=== PATIENT | male | born 1975 | race Caucasian/White ===

== ENCOUNTER → 2022-09-27 | Outpatient (CLI) | payer OTHER | END | disposition home or self-care (01) | LOC: RAD 09:59 | PROVIDERS: ATTEND Family Medicine | DX: M16.12 Unilateral primary osteoarthritis, left hip (principal) ==

== ENCOUNTER → 2024-12-22 | Day surgery (SDC) | payer OTHER ==
[~2024-12-22] VITALS: Ht 180.3 cm; Wt 99.8 kg
[~2024-12-22] MED LIST: AMLODIPINE BESY10 MG PO; DULOXETINE HCL60 MG PO; LISINOPRIL40 MG PO; Lactated Ringer's Solution 1,000 ML IV ONE; Lactated Ringer's Solution 1,000 ML IV SCH; Lidocaine Hydrochloride 2% 5 ML SDV IV ONE; PROPOFOL 200 MG/20 ML VIAL IV ONE; SIMVASTATIN40 MG PO
[2024-12-22 07:09] VITALS: BP 140/97
[2024-12-22 08:03] VITALS: BP 113/74
[2024-12-22 08:18] VITALS: BP 156/99
[2024-12-22 08:31] VITALS: BP 169/100
== END | disposition home or self-care (01) ==
LOC: SDC 12-18 08:00
PROVIDERS: ATTEND Surgery
DX: Z12.11 Encounter for screening for malignant neoplasm of colon (principal); K63.5 Polyp of colon; I10 Essential (primary) hypertension; E78.5 Hyperlipidemia, unspecified; F32.A Depression, unspecified; F41.9 Anxiety disorder, unspecified; L40.9 Psoriasis, unspecified; M19.90 Unspecified osteoarthritis, unspecified site; Z98.890 Other specified postprocedural states; Z79.899 Other long term (current) drug therapy; Z87.891 Personal history of nicotine dependence